=== PATIENT | male | born 1950 | race Caucasian/White ===

== ENCOUNTER 2022-04-07 09:36 | Emergency (ER) | payer BC ==
[~2022-04-07] VITALS: Ht 167.6 cm; Wt 64.9 kg
[2022-04-07 09:48] VITALS: BP_SYST 117
--- NOTE | 2022-04-07 09:50 | NUR ---
Placed in room 2 . Placed on auto parker, blood pressure machine and pulse oximeter. To gown for exam. Side rails up. Report given to JUSTO JULIAN.
--- NOTE | 2022-04-07 09:50 | NUR ---
ER DR. OROURKE AT THE BEDSIDE EXAMINING PT
[2022-04-07 10:54] LABS: BASOPHILS # (AUTO) 0.1 K/uL (0.0-0.2); BASOPHILS % (AUTO) 0.8 % (0.0-2.0); EOSINOPHILS # (AUTO) 1.1 K/uL (0.0-0.4); EOSINOPHILS % (AUTO) 7.9 % (0.0-4.0); HEMATOCRIT 33.2 % (36-54); HEMOGLOBIN 10.4 g/dL (14.0-18.0); LYMPHOCYTES # (AUTO) 0.4 K/uL (1.0-5.5); LYMPHOCYTES % (AUTO) 2.9 % (20.5-51.5); MEAN CORPUSCULAR HEMOGLOBIN 23 pg (27-31); MEAN CORPUSCULAR HGB CONC 31 % (32-36); MEAN CORPUSCULAR VOLUME 73 fL (79.0-98.0); MONOCYTES # (AUTO) 1.1 K/uL (0.0-1.0); MONOCYTES % (AUTO) 7.7 % (1.7-9.3); NEUTROPHILS # (AUTO) 11.4 K/uL (1.8-7.7); NEUTROPHILS % (AUTO) 80.7 % (40.0-70.0); PLATELET COUNT (AUTO) 367 K/uL (130-430); RED BLOOD CELL COUNT(AUTO) 4.55 MIL/uL (4.2-6.2); RED CELL DISTRIBUTION WIDTH 18.4 % (9.0-15.0); WHITE BLOOD COUNT (AUTO) 14.1 K/uL (4.8-10.8)
[2022-04-07 11:15] LABS: CALCIUM 8.6 mg/dL (8.4-11.0); CREATININE 0.97 mg/dL (0.55-1.30); POTASSIUM 4.5 mmol/L (3.5-5.1)
[2022-04-07 11:22] LABS: ALBUMIN 3.2 g/dL (3.4-4.8); TOTAL BILIRUBIN 0.3 mg/dL (0.0-1.0)
[2022-04-07 11:26] VITALS: BP_SYST 145
[2022-04-07 11:54] LABS: BILIRUBIN,URINE NEGATIVE (NEGATIVE); CLARITY/URINE CLEAR (CLEAR); COLOR,URINE YELLOW (YELLOW); GLUCOSE,URINE NEGATIVE (NEGATIVE); KETONES,URINE NEGATIVE (NEGATIVE); LEUKOCYTE ESTERASE ,URINE NEGATIVE (NEGATIVE); NITRITE, URINE NEGATIVE (NEGATIVE); PROTEIN URINE NEGATIVE (NEGATIVE); UROBILINOGEN,URINE 0.2 (0.2-1.0)
[2022-04-07 12:00] LABS: BLOOD, URINE TRACE (NEGATIVE)
[2022-04-07 12:02] LABS: BACTERIA,URINE RARE /HPF (None Seen); RBC,URINE 0-3 /HPF (0-3); WBC,URINE 0-3 /HPF (0-3)
[2022-04-07] MEDS ORDERED: ONDA-8 TL (12:39)
== END 2022-04-07 13:27 | disposition home or self-care (01) ==
LOC: SED 09:36
DX: D72.829 Elevated white blood cell count, unspecified (principal); R74.01 Elevation of levels of liver transaminase levels; Z79.899 Other long term (current) drug therapy
CPT/HCPCS: 36415; 71045; 76376; 80053; 81000; 83605; 83690; 85025; 87040; 99285